=== PATIENT | male | born 1965 | race Caucasian/White ===

== ENCOUNTER → 2024-05-22 | Outpatient (CLI) | payer MEDICAID, SELFPAY ==
--- NOTE | 2024-05-22 08:45 | XR_ITS ---
Examination: Ultrasound soft tissue extremity right elbow TECHNIQUE: By resolution grayscale sonographic images soft tissue right elbow Exam date and time: May 22, 2024 0900 hours INDICATIONS: Injury to the elbow 2 months ago with persistent elbow pain. FINDINGS: Soft tissue mass with central cystic areas, 3.82 x 1.3 x 2.4 cm IMPRESSION: Soft tissue mass with central cystic area, measuring 3.8 x 1.3 x 2.4 cm, differential would include abscess, hematoma, soft tissue mass, clinical correlation advised
== END | disposition home or self-care (01) ==
PROVIDERS: PCP Physician Assistant; Referring Provider Physician Assistant; Visit Provider Physician Assistant
DX: R22.31 Localized swelling, mass and lump, right upper limb (principal)
CPT/HCPCS: 76882

== ENCOUNTER 2025-03-04 15:30 | Outpatient (RCR) | payer MEDICAID, SELFPAY ==
--- NOTE | 2025-02-06 11:49 | PTNOTE_ITS ---
PT OP Initial Eval Patient Information Outpatient Physical Therapy Treatment Date: 02/06/25 Visit Reasons: pain in RT knee Medical Diagnosis: s39.012d; m79.651 Treatment Dx #1: Back Pain Treatment Dx #2: Right LE Pain Start of Care: 02/06/25 Date of Onset: 2 months ago Smoking Status Smoking Status: Never smoker Initial Assessment Subjective: Pt is a 60 y/o male reports of back pain with right LE numbness since his twisting injury ~ 2 months ago. Pt average pain is 0-5/10 based upon activities. Pt has limitation with prolonged sitting, walking, standing, lifting, chores, self care, and performing recreational activities. Objective: L/S AROM: all motions are WFL except end range pain with left sidebending and bilateral rotation Hip PROM: all motions are WFL except IR Hip MMTs: grossly 3+/5 Special Test (+) slump (+) DIMA's (+) merino Palpation: TTP hypomobile L4-L5 facets Assessment: Pt demonstrate back pain with mobility deficits consistent with possible disc involvement leading to difficulty with ADLs. Pt will attempt physical therapy if pain persist Pt will be refer back to provider for further consultation. Short Term and [employer] Goals 1) Increase L/S AROM WNL in 6 wks to be able to perform chores 2) Decrease back pain to 2/10 in 6 wks to be able to sit and stand more than 30 mins 3) Increase core strength WFL in 6 wks to be able to perform recreational activities 4) Increase hip MMTs grossly to 4-/5 in 6 wks to be able to walk more than 30 mins 5) Indep with HEP Treatment Plan 1) Manual Therapy 2) Therapeutic Activities 3) Therapeutic Exercises 4) Modalities (ice, heat, traction) Frequency and Duration: 2 x wk for 6 wks Certification Dates: 02/06/25 to 05/08/25 Procedure Charges OP PT Eval Mod Complex 30 minutes: Yes
--- NOTE | 2025-02-11 13:49 | PT.ODAYNRPT ---
PT Outpatient Daily Note OP Daily Note Outpatient Physical Therapy Treatment Date: 02/11/25 Visit Reasons: pain in RT knee Subjective: Pt's back and leg feels about the same. No change in overall pain since eval Objective: Please see flow chart for list of ther ex performed Assessment: minimal changes with pain post PT session. Heat helped patient tolerate supine exercises Plan: Continue with PT Length of Time (minutes) of Treatment: 30 Minutes Procedure Charges Therapeutic Exercise 30 minutes: Yes
--- NOTE | 2025-02-13 13:35 | PT.ODAYNRPT ---
PT Outpatient Daily Note OP Daily Note Outpatient Physical Therapy Treatment Date: 02/13/25 Visit Reasons: pain in RT knee Subjective: Pt reports R knee was sore after last session and is still having pain today. Pt c/o pain in groin area and mid/low back region with numbing sensation sown the leg. Objective: Please see flow sheet for ther ex list. Assessment: Pt instructed on LLP prone on elbows, no changes with LE symptoms at this time, to assess in future visits. Plan: Continue with poC. Length of Time (minutes) of Treatment: 30 Minutes Procedure Charges Therapeutic Exercise 30 minutes: Yes
--- NOTE | 2025-02-19 15:22 | PT.ODAYNRPT ---
PT Outpatient Daily Note OP Daily Note Outpatient Physical Therapy Treatment Date: 02/19/25 Visit Reasons: pain in RT knee Subjective: Pt's back is much better. Pt still has difficulty with bendover and twisting. Objective: Please see flow chart for list of the ex perfromed Assessment: progressing with nerve flossing; added ankle DF with good tolerance. Pt repors of less back pain post PT session Plan: Continue with PT Length of Time (minutes) of Treatment: 30 Minutes Procedure Charges Therapeutic Exercise 30 minutes: Yes
--- NOTE | 2025-02-21 15:52 | PT.ODAYNRPT ---
PT Outpatient Daily Note OP Daily Note Outpatient Physical Therapy Treatment Date: 02/21/25 Visit Reasons: pain in RT knee Subjective: Pt reports back has been feeling better these last few days. Objective: Please see flow sheet for ther ex list. Assessment: Pt instructed on hip flexor stretch, performed with forward trunk flexion verbal cues to stand more erect pt complied. Plan: Continue with POC. Length of Time (minutes) of Treatment: 30 Minutes Procedure Charges Therapeutic Exercise 30 minutes: Yes
--- NOTE | 2025-02-27 15:59 | PT.ODAYNRPT ---
PT Outpatient Daily Note OP Daily Note Outpatient Physical Therapy Treatment Date: 02/27/25 Visit Reasons: pain in RT knee Subjective: Pt's back is better. Pt does not have any concerns to share. Objective: Please see flow chart for list of ther ex performed Assessment: progress patient to more core strengthening. Pt demonstrate improve bilateral Hs length and has been able to progress with nerve floss incorporating ankle DF component Plan: Continue with PT Length of Time (minutes) of Treatment: 30 Minutes Procedure Charges Therapeutic Exercise 30 minutes: Yes
--- NOTE | 2025-03-04 16:01 | PT.ODAYNRPT ---
PT Outpatient Daily Note OP Daily Note Outpatient Physical Therapy Treatment Date: 03/04/25 Visit Reasons: pain in RT knee Subjective: Pt's back is feeling okay. Pt is willing to do anything in PT as long as it helps the back. Objective: Please see flow chart for list of ther ex performed Assessment: advance patient to sitting nerve floss today with good tolerance to exercise. Cues to correct low row and rows to decrease upper trape use. Plan: Continue with PT Length of Time (minutes) of Treatment: 30 Minutes Procedure Charges Therapeutic Exercise 30 minutes: Yes
== END 2025-03-05 23:59 | disposition home or self-care (01) ==
LOC: CPTX 15:30
PROVIDERS: PCP Physician Assistant; Referring Provider Physician Assistant; Visit Provider Physician Assistant
DX: M54.50 Low back pain, unspecified (principal); M79.651 Pain in right thigh; S39.012D Strain of muscle, fascia and tendon of lower back, subsequent encounter; X50.1XXD Overexertion from prolonged static or awkward postures, subsequent encounter
CPT/HCPCS: 97110; 97162

== ENCOUNTER 2025-03-27 15:30 | Outpatient (RCR) | payer MEDICAID, SELFPAY ==
--- NOTE | 2025-03-11 16:40 | PT.ODAYNRPT ---
PT Outpatient Daily Note OP Daily Note Outpatient Physical Therapy Treatment Date: 03/11/25 Visit Reasons: Pain in RT knee Subjective: Pt reports back has been feeling better since starting PT. Objective: Please see flow sheet for ther ex list. Assessment: Added ball squats for functional squatting to then work on functional lifting. Verbal cues for pt to work on hip hinge during squat, pt complied post verbal instruction and demonstration. Plan: Continue with poC. Length of Time (minutes) of Treatment: 30 Minutes Procedure Charges Therapeutic Exercise 30 minutes: Yes
--- NOTE | 2025-03-13 16:21 | PT.ODAYNRPT ---
PT Outpatient Daily Note OP Daily Note Outpatient Physical Therapy Treatment Date: 03/13/25 Visit Reasons: Pain in RT knee Subjective: Pt reports back has been feeling better lately. Objective: Please see flow sheet for ther ex list. Assessment: Pt presents in clinic with no c/o pain allowing for intervention progression. Plan: Continue with POC. Length of Time (minutes) of Treatment: 30 Minutes Procedure Charges Therapeutic Exercise 30 minutes: Yes
--- NOTE | 2025-03-20 16:14 | PT.ODAYNRPT ---
PT Outpatient Daily Note OP Daily Note Outpatient Physical Therapy Treatment Date: 03/20/25 Visit Reasons: Pain in RT knee Subjective: Pt reports progress with LBP. Objective: Please see flow sheet for ther ex list. Assessment: Pt symptoms progressing allowing for intervention progression. Plan: Continue with poC. Length of Time (minutes) of Treatment: 30 Minutes Procedure Charges Therapeutic Exercise 30 minutes: Yes
--- NOTE | 2025-03-22 16:12 | PT.ODS1RPT ---
PT OP Progress/Discharge Note Date of Service: 03/22/25 Progress Note/DC Note Progress Note/Discharge Note: Progress Note Patient Information Visit Reasons: Pain in RT knee Medical Diagnosis: s39.012d; m79.651 Treatment Dx #1: Back Pain Treatment Dx #2: Right LE Pain Service Continue Service or Discharge: Continue Service Certification Date Certification Dates: 03/22/25 to 06/22/25 Status Subjective: Pt's back and right leg pain is much better. Pt has been able to stand, walk, perform chores, and ADLs with less limitation. Pt will like to continue physical therapy. Objective: L/S AROM: all motions are WFL Hip PROM: all motoions are WFL Hip MMTs: grossly 4-/5 Assessment: Pt is progressing with L/S mobility and overall core strength allowing him to resume ADLs, ambulate, and light chores with less limitation. Pt will continue to benefit from physical therapy to increase mobility and core strength; thank you for your referrals. Plan: Continue with PT/POC and add 6 sessions (2 x wk for 3 wks) Procedure Charges Therapeutic Exercise 30 minutes: Yes
--- NOTE | 2025-03-27 16:06 | PT.ODAYNRPT ---
PT Outpatient Daily Note OP Daily Note Outpatient Physical Therapy Treatment Date: 03/27/25 Visit Reasons: Pain in RT knee Subjective: Pt's back is much better. As stated last session Pt will like to continue physical therapy if possible. Pt has been able to do more ADLs with less pain. Objective: Please see flow chart for list of ther ex performed Assessment: added more resistance band core exercises with good tolerance. Pt performed all exercises in this session with minimal pain reported Plan: Continue with PT Length of Time (minutes) of Treatment: 30 Minutes Procedure Charges Therapeutic Exercise 30 minutes: Yes
--- NOTE | 2025-04-26 13:26 | PT.ODS1RPT ---
PT OP Progress/Discharge Note Date of Service: 04/26/25 Progress Note/DC Note Progress Note/Discharge Note: DC Note Patient Information Visit Reasons: Pain in RT knee Service Discharge Date: 04/26/25 Status Assessment: Pt has been seen for 12 visits (eval + 11 visits). Pt last treated on 03/27/25 and no further physical therapy was authorized and will be d/c from care. Pt did not meet set goals in therapy; thank you for your referrals.
== END 2025-04-05 23:59 | disposition home or self-care (01) ==
LOC: CPTX 15:30
PROVIDERS: PCP Physician Assistant; Referring Provider Physician Assistant; Visit Provider Physician Assistant
DX: M79.651 Pain in right thigh (principal); M54.9 Dorsalgia, unspecified; R20.0 Anesthesia of skin; R26.2 Difficulty in walking, not elsewhere classified; S39.012D Strain of muscle, fascia and tendon of lower back, subsequent encounter; X50.1XXD Overexertion from prolonged static or awkward postures, subsequent encounter
CPT/HCPCS: 97110